=== PATIENT | female | born 1960 | race Caucasian/White ===

== ENCOUNTER 2018-07-12 00:24 | Emergency (ER) | payer MEDICARE ==
[~2018-07-12] VITALS: Ht 157.5 cm; Wt 88.6 kg
[2018-07-12] MEDS ORDERED: ASPIRIN 81 MG TABLET CHEW PO ONE (01:00)
[2018-07-12 01:06] LABS: BASOPHILS # (AUTO) 0.03 x10^3/uL (0-0.1); BASOPHILS % (AUTO) 0 % (0-1); EOSINOPHILS # (AUTO) 0.52 x10^3/uL (0-0.4); EOSINOPHILS % (AUTO) 4 % (1-7); LYMPHOCYTES # (AUTO) 4.34 x10^3/uL (1-3.4); LYMPHOCYTES % (AUTO) 34 % (22-44); MD NO; MEAN CORPUSCULAR HEMOGLOBIN 31.1 pg (27.0-34.8); MEAN CORPUSCULAR HGB CONC 34.1 g/dL (32.4-35.8); MEAN CORPUSCULAR VOLUME 91.2 fL (80-100); MEAN PLATELET VOLUME 8.6 fL (7.4-10.4); MONOCYTES # (AUTO) 0.72 x10^3/uL (0.2-0.8); MONOCYTES % (AUTO) 6 % (2-9); NEUTROPHILS # (AUTO) 7.14 x10^3/uL (1.8-6.8); NEUTROPHILS % (AUTO) 56 % (42-75); PLATELET COUNT 332 x10^3/uL (130-400); RED BLOOD COUNT 4.53 x10^6/uL (3.82-5.3); RED CELL DISTRIBUTION WIDTH 13.8 % (9.6-15.2)
[2018-07-12 01:08] LABS: ALANINE AMINOTRANSFERASE 23 U/L (12-78); ALBUMIN 3.9 g/dL (3.4-5.0); ANION GAP 9 mmol/L (5-15); CALCIUM 8.8 mg/dL (8.5-10.1); CHLORIDE 107 mmol/L (98-107); CREATININE 0.61 mg/dL (0.55-1.02)
[2018-07-12 01:13] LABS: ALKALINE PHOSPHATASE 101 U/L (45-117); BILIRUBIN,TOTAL 0.2 mg/dL (0.2-1.0); TROPONIN I < 0.015 ng/mL (0.000-0.045)
[2018-07-12] MEDS ORDERED: LABETALOL 5MG/ML, 20ML IVPush STA (01:29)
[2018-07-12] MEDS ORDERED: KETOROLAC 30 MG/1 ML IVPush ONE (01:30)
[2018-07-12] MEDS ORDERED: LABETALOL 5MG/ML, 20ML ONE (01:43)
[2018-07-12] MEDS ORDERED: KETOROLAC 30 MG/1 ML ONE (01:43)
[2018-07-12 02:00] VITALS: BP 167/107
[2018-07-12] MEDS ORDERED: OXYcodone/APAP 5/325MG TABLET PO ONE (02:00)
[2018-07-12] MEDS ORDERED: OXYcodone/APAP 5/325MG TABLET ONE (02:03)
== END 2018-07-12 02:48 ==
LOC: ED 01:12
DX: R07.89 Other chest pain (principal); M25.561 Pain in right knee; R51 Headache; F11.23 Opioid dependence with withdrawal; I10 Essential (primary) hypertension
CPT/HCPCS: 36415; 71045; 80053; 84484; 85025; 93005; 96374; 96375; 99285; J1885

== ENCOUNTER 2018-07-14 15:24 | Inpatient (IN) | payer MEDICARE ==
[~2018-07-14] VITALS: Ht 157.5 cm; Wt 89.0 kg
[2018-07-14] MEDS ORDERED: HYDR25TA6 PO (15:57)
[2018-07-14] MEDS ORDERED: AMLO10TA4 PO (15:57)
[2018-07-14] MEDS ORDERED: DOXE150C PO (15:57)
[2018-07-14] MEDS ORDERED: ARIP10TA33 PO (15:57)
[2018-07-14] MEDS ORDERED: METO50TA82 PO (15:57)
[2018-07-14] MEDS ORDERED: OXYC20TA2 PO (15:57)
[2018-07-14] MEDS ORDERED: TRAM50TA2 PO (15:57)
[2018-07-14] MEDS ORDERED: DICL100G19 TP (15:57)
[2018-07-14] MEDS ORDERED: CLON0.2T PO (15:57)
[2018-07-14] MEDS ORDERED: LIPA1CAP61 PO (15:57)
[2018-07-14] MEDS ORDERED: ACET325T14 PO (15:57)
[2018-07-14] MEDS ORDERED: DOCU100T3 PO (15:57)
[2018-07-14] MEDS ORDERED: OMEP20TA62 PO (15:57)
[2018-07-14] MEDS ORDERED: LISI40TA PO (15:57)
[2018-07-14] MEDS ORDERED: KETOROLAC 30 MG/1 ML IM ONE (16:00)
[2018-07-14] MEDS ORDERED: CHLORDIAZEPOXIDE 10 MG CAPSULE PO PRN (16:00)
[2018-07-14] MEDS ORDERED: ACETAMINOPHEN 500 MG TABLET ONE (16:02)
[2018-07-14] MEDS ORDERED: CHLORDIAZEPOXIDE 25 MG CAPSULE ONE (16:02)
[2018-07-14] MEDS ORDERED: CHLORDIAZEPOXIDE 10 MG CAPSULE ONE (16:04)
[2018-07-14 16:13] LABS: ANION GAP 11 mmol/L (5-15); CALCIUM 9.1 mg/dL (8.5-10.1); CHLORIDE 97 mmol/L (98-107); CREATININE 0.64 mg/dL (0.55-1.02)
[2018-07-14] MEDS ORDERED: ACETAMINOPHEN 500 MG TABLET PO PRN (16:30)
[2018-07-14 16:46] LABS: ANION GAP 9 mmol/L (5-15); CHLORIDE 96 mmol/L (98-107); CREATININE 0.61 mg/dL (0.55-1.02)
[2018-07-14] MEDS ORDERED: LORazepam 2 MG/ML, 1ML ONE (17:19)
[2018-07-14] MEDS ORDERED: LORazepam 2 MG/ML, 1ML IVPush ONE (17:30)
[2018-07-14] MEDS ORDERED: SODIUM CHLORIDE 0.9% 1,000 ML IV ONE (17:30)
[2018-07-14] MEDS ORDERED: OXYcodone 5 MG/5 ML ORAL.SOL UDC ONE (17:54)
[2018-07-14] MEDS ORDERED: LABETALOL 5MG/ML, 20ML IVPush PRN (18:00)
[2018-07-14] MEDS ORDERED: ONDANSETRON ODT 4 MG PO PRN (18:00)
[2018-07-14] MEDS ORDERED: HYDROCHLOROTHIAZIDE 25 MG TABLET PO ONE (18:00)
[2018-07-14] MEDS ORDERED: ONDANSETRON 2MG/ML, 2ML IVPush PRN (18:00)
[2018-07-14] MEDS ORDERED: OXYcodone 5 MG/5 ML ORAL.SOL UDC PO ONE (18:00)
[2018-07-14] MEDS ORDERED: hydrALAzine 20 MG/ML, 1ML IVPush PRN (18:00)
[2018-07-14 18:27] LABS: FREE T4 (FREE THYROXINE) 0.93 ng/dL (0.76-1.46); THYROID STIMULATING HORMONE 1.57 mIU/L (0.358-3.740)
[2018-07-14 18:55] VITALS: BP_SYST 146; BP_SYST 162; BP_DIAS 77; BP_DIAS 82
[2018-07-14] MEDS: CAPSAICIN CRM 0.025%, 60GM TP SCH (21:00)
[2018-07-14] MEDS: DOCUSATE 100 MG CAPSULE PO SCH (21:00)
[2018-07-14] MEDS ORDERED: OxyconTIN ER 10 MG TAB.ER ONE (22:00)
[2018-07-14] MEDS: SODIUM CHLORIDE 0.9% 1,000 ML IV SCH (22:07)
[2018-07-14] MEDS: DOXEPIN 100 MG CAPSULE PO SCH (22:11)
[2018-07-14] MEDS: METOPROLOL TARTRATE 50 MG TABLET PO SCH (22:11)
[2018-07-14] MEDS: ACETAMINOPHEN 325 MG TABLET PO SCH (22:11)
[2018-07-14] MEDS: DOXEPIN 25 MG CAPSULE PO SCH (22:11)
[2018-07-14] MEDS: HEPARIN 5,000 UNITS/ML, 1ML SQ SCH (22:13)
[2018-07-14] MEDS: OxyconTIN ER 20 MG TAB.ER PO SCH (22:24)
[2018-07-14 22:49] LABS: ANION GAP 10 mmol/L (5-15); CALCIUM 8.7 mg/dL (8.5-10.1); CHLORIDE 99 mmol/L (98-107); CREATININE 0.71 mg/dL (0.55-1.02)
[2018-07-14 23:10] LABS: MICROSCOPIC NOT IND
[2018-07-14 23:14] LABS: CHLORIDE,URINE RANDOM 77 mmol/L; POTASSIUM,URINE RANDOM 33 mmol/L; SODIUM,URINE RANDOM 61 mmol/L
[2018-07-14 23:19] LABS: CULTURE INDICATED? NO
[2018-07-14 23:38] VITALS: BP 146/82
[2018-07-14 23:43] LABS: OSMOLALITY,URINE 285 mOsm/kg (500-850)
[2018-07-15 01:10] VITALS: BP 167/88
[2018-07-15 05:34] LABS: MEAN CORPUSCULAR HEMOGLOBIN 31.4 pg (27.0-34.8); MEAN CORPUSCULAR VOLUME 92.2 fL (80-100); MEAN PLATELET VOLUME 8.5 fL (7.4-10.4); PLATELET COUNT 311 x10^3/uL (130-400); RED BLOOD COUNT 4.63 x10^6/uL (3.82-5.3); RED CELL DISTRIBUTION WIDTH 13.7 % (9.6-15.2)
[2018-07-15 05:43] LABS: ANION GAP 7 mmol/L (5-15); CALCIUM 9.1 mg/dL (8.5-10.1); CHLORIDE 101 mmol/L (98-107); CREATININE 0.61 mg/dL (0.55-1.02)
[2018-07-15 06:20] LABS: BASOPHILS # (AUTO) 0.05 x10^3/uL (0-0.1); BASOPHILS % (AUTO) 0 % (0-1); EOSINOPHILS % (AUTO) 6 % (1-7); LYMPHOCYTES # (AUTO) 3.92 x10^3/uL (1-3.4); LYMPHOCYTES % (AUTO) 37 % (22-44); MD SCAN; MONOCYTES # (AUTO) 1.08 x10^3/uL (0.2-0.8); MONOCYTES % (AUTO) 10 % (2-9); NEUTROPHILS # (AUTO) 5.01 x10^3/uL (1.8-6.8); NEUTROPHILS % (AUTO) 47 % (42-75)
[2018-07-15 07:50] VITALS: BP 169/103
[2018-07-15] MEDS ORDERED: OxyconTIN ER 10 MG TAB.ER ONE ×2 (08:09→21:07)
[2018-07-15] MEDS: HEPARIN 5,000 UNITS/ML, 1ML SQ SCH ×3 (08:21→23:25)
[2018-07-15] MEDS: OMEPRAZOLE 20 MG CAPSULE.DR PO SCH (08:22)
[2018-07-15] MEDS: SODIUM CHLORIDE 0.9% 1,000 ML IV SCH ×2 (08:22→17:52)
[2018-07-15] MEDS: PANCRELIPASE 24,000 CAPSULE.DR PO SCH ×3 (08:22→16:02)
[2018-07-15] MEDS: ARIPIPRAZOLE 10 MG TABLET PO SCH (08:23)
[2018-07-15] MEDS: ACETAMINOPHEN 325 MG TABLET PO SCH ×3 (08:23→22:26)
[2018-07-15] MEDS: LISINOPRIL 20 MG TABLET PO SCH (08:23)
[2018-07-15] MEDS: METOPROLOL TARTRATE 50 MG TABLET PO SCH ×2 (08:24→21:09)
[2018-07-15] MEDS: OxyconTIN ER 20 MG TAB.ER PO SCH ×2 (08:24→21:10)
[2018-07-15] MEDS: AMLODIPINE 10 MG TAB PO SCH (08:29)
[2018-07-15] MEDS: CAPSAICIN CRM 0.025%, 60GM TP SCH ×2 (09:00→21:11)
[2018-07-15 13:11] VITALS: BP 130/90
[2018-07-15 20:10] VITALS: BP 131/72
[2018-07-15] MEDS: DOXEPIN 25 MG CAPSULE PO SCH (21:09)
[2018-07-15] MEDS: DOXEPIN 100 MG CAPSULE PO SCH (21:09)
[2018-07-15] MEDS: DOCUSATE 100 MG CAPSULE PO SCH (21:11)
[2018-07-16 02:40] VITALS: BP 124/84
[2018-07-16] MEDS: SODIUM CHLORIDE 0.9% 1,000 ML IV SCH (03:43)
[2018-07-16 05:17] LABS: BASOPHILS # (AUTO) 0.04 x10^3/uL (0-0.1); BASOPHILS % (AUTO) 0 % (0-1); EOSINOPHILS # (AUTO) 0.68 x10^3/uL (0-0.4); EOSINOPHILS % (AUTO) 7 % (1-7); LYMPHOCYTES # (AUTO) 3.98 x10^3/uL (1-3.4); LYMPHOCYTES % (AUTO) 42 % (22-44); MD NO; MEAN CORPUSCULAR HEMOGLOBIN 31.5 pg (27.0-34.8); MEAN CORPUSCULAR HGB CONC 33.9 g/dL (32.4-35.8); MEAN CORPUSCULAR VOLUME 93.1 fL (80-100); MEAN PLATELET VOLUME 8.6 fL (7.4-10.4); MONOCYTES # (AUTO) 1.09 x10^3/uL (0.2-0.8); MONOCYTES % (AUTO) 11 % (2-9); NEUTROPHILS # (AUTO) 3.77 x10^3/uL (1.8-6.8); NEUTROPHILS % (AUTO) 39 % (42-75); PLATELET COUNT 290 x10^3/uL (130-400); RED BLOOD COUNT 4.36 x10^6/uL (3.82-5.3); RED CELL DISTRIBUTION WIDTH 14.1 % (9.6-15.2)
[2018-07-16 05:27] LABS: ANION GAP 8 mmol/L (5-15); CALCIUM 8.9 mg/dL (8.5-10.1); CHLORIDE 105 mmol/L (98-107); CREATININE 0.52 mg/dL (0.55-1.02)
[2018-07-16] MEDS: HEPARIN 5,000 UNITS/ML, 1ML SQ SCH (05:29)
[2018-07-16] MEDS: OMEPRAZOLE 20 MG CAPSULE.DR PO SCH (08:20)
[2018-07-16] MEDS: PANCRELIPASE 24,000 CAPSULE.DR PO SCH (08:20)
[2018-07-16 08:29] VITALS: BP 159/97
[2018-07-16] MEDS ORDERED: OxyconTIN ER 10 MG TAB.ER ONE (08:55)
[2018-07-16] MEDS: CAPSAICIN CRM 0.025%, 60GM TP SCH (09:00)
[2018-07-16] MEDS: ARIPIPRAZOLE 10 MG TABLET PO SCH (09:00)
[2018-07-16] MEDS: OxyconTIN ER 20 MG TAB.ER PO SCH (09:00)
[2018-07-16] MEDS: METOPROLOL TARTRATE 50 MG TABLET PO SCH (09:01)
[2018-07-16] MEDS: AMLODIPINE 10 MG TAB PO SCH (09:01)
[2018-07-16] MEDS: ACETAMINOPHEN 325 MG TABLET PO SCH (09:03)
[2018-07-16] MEDS: LISINOPRIL 20 MG TABLET PO SCH (09:03)
[2018-07-16] MEDS ORDERED: CLON0.2T10 PO (09:23)
== END 2018-07-16 11:42 | disposition home or self-care (01) | DRG 641 ==
LOC: ED 17:21 → EDIP 17:22 → ED 17:24 → 3NE 18:15 → ED 18:17 → DCLOUNGE 07-16 11:23
PROVIDERS: ADMIT Hospitalist; ATTEND Hospitalist
DX: E87.1 Hypo-osmolality and hyponatremia (principal); F13.239 Sedative, hypnotic or anxiolytic dependence with withdrawal, unspecified; K86.1 Other chronic pancreatitis; F41.9 Anxiety disorder, unspecified; D72.829 Elevated white blood cell count, unspecified; F32.9 Major depressive disorder, single episode, unspecified; I10 Essential (primary) hypertension; Z82.3 Family history of stroke; Z82.49 Family history of ischemic heart disease and other diseases of the circulatory system; Z88.8 Allergy status to other drugs, medicaments and biological substances
CPT/HCPCS: 36415; 80048; 81003; 82436; 83930; 83935; 84133; 84300; 84439; 84443; 85025; 93005; 96374; 99285; G0378; J1644; J2060; J7030

== ENCOUNTER 2019-03-24 10:40 | Emergency (ER) | payer MEDICARE ==
[~2019-03-24] VITALS: Ht 157.5 cm; Wt 88.5 kg
[~2019-03-24 10:40] MED LIST: ACET325T14 PO; AMLO10TA4 PO; ARIP10TA33 PO; CLON0.2T PO; CLON0.2T10 PO; DICL100G19 TP; DOCU100T3 PO; DOXE150C PO; HYDR25TA6 PO; LIPA1CAP61 PO; LISI40TA PO; METO50TA82 PO; OMEP20TA62 PO; OXYC20TA2 PO; TRAM50TA2 PO
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
--- NOTE | 2019-03-24 11:26 | NUR ---
PATIENT IN XRAY.
[2019-03-24] MEDS ORDERED: SODIUM CHLORIDE FLUSH 10ML SYR IVF ONE (11:30)
--- NOTE | 2019-03-24 12:01 | NUR ---
VS UPDATED IN CHART, AWAITING CT AND RESULTS FOR LABS/XRAY. PATIENT SITTING IN [place].
[2019-03-24 12:10] LABS: MEAN CORPUSCULAR HEMOGLOBIN 31.1 pg (27.0-34.8); MEAN CORPUSCULAR HGB CONC 33.8 g/dL (32.4-35.8); MEAN CORPUSCULAR VOLUME 92.2 fL (80-100); MEAN PLATELET VOLUME 8.6 fL (7.4-10.4); PLATELET COUNT 296 x10^3/uL (130-400); RED CELL DISTRIBUTION WIDTH 13.6 % (9.6-15.2)
[2019-03-24 12:16] LABS: ANION GAP 11 mmol/L (5-15); CALCIUM 8.6 mg/dL (8.5-10.1); CHLORIDE 93 mmol/L (98-107); CREATININE 1.02 mg/dL (0.55-1.02)
[2019-03-24 12:17] LABS: ALBUMIN 3.2 g/dL (3.4-5.0)
[2019-03-24 12:30] LABS: BASOPHILS # (AUTO) 0.05 x10^3/uL (0-0.1); BASOPHILS % (AUTO) 0 % (0-1); EOSINOPHILS # (AUTO) 0.19 x10^3/uL (0-0.4); EOSINOPHILS % (AUTO) 1 % (1-7); LYMPHOCYTES # (AUTO) 2.42 x10^3/uL (1-3.4); LYMPHOCYTES % (AUTO) 15 % (22-44); MD SCAN; MONOCYTES # (AUTO) 0.93 x10^3/uL (0.2-0.8); MONOCYTES % (AUTO) 6 % (2-9); NEUTROPHILS # (AUTO) 12.41 x10^3/uL (1.8-6.8); NEUTROPHILS % (AUTO) 78 % (42-75)
--- NOTE | 2019-03-24 12:51 | NUR ---
PATIENT NEXT FOR CT PER MANAGER SURGERY VIA PHONE.
--- NOTE | 2019-03-24 13:24 | NUR ---
PATIENT IN CT.
--- NOTE | 2019-03-24 13:47 | NUR ---
PATIENT AMB WITH STEADY GAIT TO BATHROOM, NADN.
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
[2019-03-24 15:11] VITALS: BP 99/65
== END 2019-03-24 15:13 | disposition home or self-care (01) ==
LOC: ED 14:11
DX: S30.1XXA Contusion of abdominal wall, initial encounter (principal); S00.83XA Contusion of other part of head, initial encounter; S50.02XA Contusion of left elbow, initial encounter; S50.01XA Contusion of right elbow, initial encounter; S80.02XA Contusion of left knee, initial encounter; S80.01XA Contusion of right knee, initial encounter; E87.1 Hypo-osmolality and hyponatremia; Z88.8 Allergy status to other drugs, medicaments and biological substances; Y04.8XXA Assault by other bodily force, initial encounter; Y93.89 Activity, other specified; Y92.89 Other specified places as the place of occurrence of the external cause; Y99.8 Other external cause status
CPT/HCPCS: 36415; 70450; 74177; 80048; 82040; 85025; 93005; 99284